=== PATIENT | male | born 1945 | race Caucasian/White ===

== ENCOUNTER → 2017-05-05 | Outpatient (CLI) | payer MEDICARE, OTHER ==
[~2017-05-05] VITALS: Ht 172.7 cm; Wt 88.0 kg
[~2017-05-05] MED LIST: LISI10TA2 PO; REGADENOSON 0.4 MG/5 ML DISP.SYRIN. IV ONE; SIMV40TA3 PO
--- NOTE | 2017-05-06 10:55 | RAD ---
APPROVED REPORT Test Type: Pharmacological Stress Nurse/Tech: Val Sanchez R.N. Test Indications: chest pain Cardiac History: Family history, Hypertension, former smoker Medications: See Electronic Medical Record Medical History: See Electronic Medical Record Resting ECG: NSR Resting Heart Rate: 73 bpm Resting Blood Pressure: 136/77mmHg Pretest Chest Pain: No chest pain Nurse/Tech Notes S1S2, lungs sound clear Consent: The procedure was explained to the patient in lay terms. Informed consent was witnessed. Imtiaz eout was entered into [employer]. History and Stress Test performed by Val Sanchez R.N. Pharm. Details Pharmacologic stress testing was performed using 0.4mg per 5ml of regadenoson given intravenously ove r 7-10 seconds. Stress Symptoms Dyspnea POST EXERCISE Reason for Termination: Infusion complete Max HR: 93 bpm Max Blood Pressure: 130/76mmHg Blood Pressure response to exercise: Normal blood pressure response during stress. Chest Pain: No. Arrhythmia: No. ST Change: No. Imaging Protocol IMAGE PROTOCOL: Rest Tc-99m/stress Tc-99m 1 day Rest: Stress: Viability: Radiopharm.Tc99m [id number] Sestamibi Dose11.3mCi 33.9mCi Img Date 05/05/2017 05/05/2017 Inj-Img [id number]. 60min. Rest Admin Site:IV - Right AntecubitalAdministrator:DARIELA Avina Stress Admin Site: IV - Right AntecubitalAdministrator: CANDELARIO Ash, ARRT (R)(N) STRESS DATA End Diast. Vol.92.0mlAv. Heart Rate76.0bpm End Syst. Vol.24.0mlCO Index BSA0.0L/min Myocardial Jffo384.0gEject. Myseiikm47.0% Stress Rates Pk. Fill Rate1.96EDV/secLVtime Pk. Fill 101.73msec Pk. Empty Rate3.71ESV/secLVtime Pk. Lmnmm070.19msec 10/29 Pk. Fill1.39EDV/sec Stress Scores Regional WT0.00Summed WT0.00 Regional WM0.00Summed WM1.00 LV Perf. Quant 17 Seg. SSS1.00 17 Seg. SRS5.00 17 Seg. SDS0.00 Stress Defect Extent (% LAD)0.00Rest Defect Extent (% LAD)0.00Rev. Defect Extent (% LAD)0.00 Stress Defect Extent (% LCX) 0.00Rest Defect Extent (% LCX)0.00Rev. Defect Extent (% LCX)0.00 Stress Defect Extent (% RCA)0.00Rest Defect Extent (% RCA)13.30Rev. Defect Extent (% RCA)0.00 Stress Defect Extent (% CARLOTA)0.00Rest Defect Extent (% CARLOTA)2.60Rev. Defect Extent (% CARLOTA)0.00 Conclusion 1. No electrocardiographic changes suggestive of myocardial ischemia with pharmacological stress. 2. perfusion defects to suggest significant myocardial ischemia or scar. 3. Normal wall motion and wall thickening with an ejection fraction of 74%. 4. Scan indicates low risk for future cardiac events
== END | disposition home or self-care (01) ==
LOC: NM 07:57
PROVIDERS: ATTEND Internal Medicine Cardiovascular Disease
DX: R93.1 Abnormal findings on diagnostic imaging of heart and coronary circulation (principal); E78.2 Mixed hyperlipidemia; R06.02 Shortness of breath; R07.9 Chest pain, unspecified; K80.20 Calculus of gallbladder without cholecystitis without obstruction; Z82.49 Family history of ischemic heart disease and other diseases of the circulatory system
CPT/HCPCS: 78452; 93017; 96374; 96375; 96376; A9500; J2785

== ENCOUNTER → 2021-05-04 | Outpatient (CLI) | payer MEDICARE, OTHER ==
[~2021-05-04] MED LIST changes: +GADOTERATE 7.5 MMOL/15ML VIAL. IVP ONE; +LISI10TA16 PO; -LISI10TA2 PO; -REGADENOSON 0.4 MG/5 ML DISP.SYRIN. IV ONE; +SIMV40TA18 PO; -SIMV40TA3 PO
--- NOTE | 2021-05-04 15:55 | KCIC ---
MRI of the Brain without and with Contrast 05/04/2021 Clinical History: Word finding difficulty. TIA. Technique: Unenhanced T1-weighted sagittal and axial and FLAIR, T2-weighted, gradient echo and diffus ion-weighted axial images of the brain were obtained. After the intravenous administration of 18 cc o f Clariscan, enhanced T1-weighted axial and coronal images of the brain were obtained. Findings: There is generalized parenchymal atrophy. Patchy, confluent and multiple small focal areas of increased signal intensity are seen within the periventricular and subcortical white matter of bot h cerebral hemispheres along with the jimy on the FLAIR and T2-weighted images consistent with areas of small vessel ischemic disease. No acute parenchymal abnormality is seen. No extra-axial fluid jonathon ection is noted. There is no MRI evidence of acute ischemia/infarction. Mild to moderate mucosal thickening is seen scattered throughout the paranasal sinuses. There are sma ll bilateral mastoid effusions, right greater than left. Normal flow voids are seen within the major vascular structures surrounding the brain parenchyma. IMPRESSION: No acute parenchymal abnormality is seen. Electronically signed by: Kelechi Hough MD (05/04/2021 3:52 PM) [id number]
== END ==
LOC: KCIC MRI 12:24
PROVIDERS: ATTEND Family Medicine
DX: G31.9 Degenerative disease of nervous system, unspecified (principal); R47.01 Aphasia
CPT/HCPCS: 70553; 82565; A9575

== ENCOUNTER → 2021-11-19 | Outpatient (CLI) | payer MEDICARE, OTHER ==
[~2021-11-19] MED LIST changes: -GADOTERATE 7.5 MMOL/15ML VIAL. IVP ONE
--- NOTE | 2021-11-19 11:20 | KCIC ---
CT THORAX WO History: Chronic cough. Technique: Noncontrast CT of the chest was performed. Coronal and sagittal reconstructions were perfo rmed. Exposure: One or more of the following individualized dose reduction techniques were utilized for thi s examination: 1. Automated exposure control 2. Adjustment of the mA and/or kV according to patient size 3. Use of iterative reconstruction technique. Comparison: None Findings: Chest: Coronary artery calcifications. No pathologic lymphadenopathy. Mild atheromatous plaque within the aortic arch. No consolidation or pleural effusion. No pneumothorax. Mild pulmonary emphysema. Mi ld right middle lobe linear atelectasis or scarring. 2 mm left lower lobe pulmonary nodule (series 3 image 158). 4 mm right lower lobe pleural-based nodul e (image 119). 2 minor right lower lobe pulmonary nodule (image 108). 3 mm right lower lobe fissure-b ased nodule (image 96). Calcified right middle lobe pulmonary nodules, likely prior granulomatous dis ease. 2 mm right middle lobe pulmonary nodule (image 122). Upper abdomen: Small left hepatic lobe cyst measures 0.9 cm. Calcified right upper quadrant lymph nod es with calcifications in the spleen and liver, likely prior granulomatous disease. Bones: Cystic structures within the region of the left renal hilum. Impression: 1. Small pulmonary nodules. Recommend one-year follow-up chest CT without contrast. 2. Mild pulmonary emphysema. 3. Cystic structures within the left renal hilum partially imaged, may represent hydronephrosis or p arapelvic cysts. If persistent clinical concern, recommend follow-up ultrasound. Electronically signed by: Davon Samano DO (11/19/2021 11:18 AM) [facility]
== END ==
LOC: KCIC CT 10:05
PROVIDERS: ATTEND Family Medicine
DX: R91.8 Other nonspecific abnormal finding of lung field (principal); J43.9 Emphysema, unspecified; I25.10 Atherosclerotic heart disease of native coronary artery without angina pectoris; I70.0 Atherosclerosis of aorta; K76.89 Other specified diseases of liver; R05.3 Chronic cough
CPT/HCPCS: 71250